=== PATIENT | male | born 1950 | race Caucasian/White ===

== ENCOUNTER 2016-08-27 21:25 | Emergency (ER) | payer BC ==
[~2016-08-27 21:25] MED LIST: MEN'S MULTI-VI1 EACH PO
[2016-08-27 23:23] LABS: URINE BILIRUBIN NEGATIVE (NEG); URINE BLOOD LARGE (NEG); URINE GLUCOSE (UA) NEGATIVE (NEG); URINE KETONE MODERATE (NEG); URINE LEUKOCYTE ESTERASE NEGATIVE (NEG); URINE NITRITE NEGATIVE (NEG); URINE PROTEIN MODERATE (NEG)
[2016-08-27 23:30] LABS: URINE APPEARANCE HAZY; URINE COLOR YELLOW
[2016-08-27 23:32] LABS: URINE EPITHELIAL CELLS RARE /[HPF] (0-10); URINE RBC 50-60 /[HPF] (0-5); URINE WBC 0-1 /[HPF] (0-5)
== END 2016-08-27 23:59 ==
LOC: EDMED 21:25
PROVIDERS: Emergency Medicine
DX: N20.0 Calculus of kidney (principal); I10 Essential (primary) hypertension
CPT/HCPCS: J1170

== ENCOUNTER 2016-08-28 07:34 | Day surgery (SDC) | payer BC ==
[2016-08-29] MEDS ORDERED: PERCOCET 5-3251 EACH PO (09:31)
[2016-08-29] MEDS ORDERED: NORCO 5-325 TA1 EACH PO (09:32)
[2016-08-29] MEDS ORDERED: BACTRIM DS TAB1 EAC2 PO (11:27)
[2016-08-29] MEDS ORDERED: ZOFRAN4 M2 PO (11:29)
[2016-08-29] MEDS ORDERED: FLOMAX0.4 M1 PO (11:29)
== END 2016-08-28 13:35 ==
LOC: SHSB 07:34 → ORE 09:21 → PACU 10:26 → SHSB 11:41
PROC: 0TF7XZZ Fragmentation in Left Ureter, External Approach (ICD-10-PCS; principal; 2016-08-28)
DX: N20.1 Calculus of ureter (principal); M47.26 Other spondylosis with radiculopathy, lumbar region; K21.9 Gastro-esophageal reflux disease without esophagitis; E55.9 Vitamin D deficiency, unspecified; Z79.899 Other long term (current) drug therapy; Z90.89 Acquired absence of other organs; Z98.890 Other specified postprocedural states
CPT/HCPCS: J1956; J3010

== ENCOUNTER 2016-08-29 09:22 | Emergency (ER) | payer BC ==
[2016-08-29] MEDS ORDERED: PERCOCET 5-3251 EACH PO (09:31)
[2016-08-29] MEDS ORDERED: NORCO 5-325 TA1 EACH PO (09:32)
[2016-08-29 10:27] LABS: URINE APPEARANCE HAZY; URINE BILIRUBIN NEGATIVE (NEG); URINE BLOOD LARGE (NEG); URINE COLOR YELLOW; URINE GLUCOSE (UA) NEGATIVE (NEG); URINE KETONE NEGATIVE (NEG); URINE LEUKOCYTE ESTERASE POSITIVE (NEG); URINE NITRITE NEGATIVE (NEG); URINE PROTEIN MODERATE (NEG)
[2016-08-29 10:31] LABS: URINE RBC 80-100 /[HPF] (0-5)
[2016-08-29 10:32] LABS: URINE BACTERIA 1+; URINE MUCUS 1+
[2016-08-29 10:46] LABS: CREATININE 1.17 mg/dl (0.60-1.30); LIPASE 72 U/L (73-393); eGFR VALUE FOR BLACK 76 mL/Min
[2016-08-29] MEDS ORDERED: BACTRIM DS TAB1 EAC2 PO (11:27)
[2016-08-29] MEDS ORDERED: ZOFRAN4 M2 PO (11:29)
[2016-08-29] MEDS ORDERED: FLOMAX0.4 M1 PO (11:29)
== END 2016-08-29 11:41 ==
LOC: EDMED 09:22
PROVIDERS: Emergency Medicine
DX: N36.8 Other specified disorders of urethra (principal)
CPT/HCPCS: J1885; J2270; J2405; J7030